=== PATIENT | female | born 1930 | race Caucasian/White ===

== ENCOUNTER → 2017-06-25 | Day surgery (SDC) | payer MEDICARE, OTHER ==
[~2017-06-25] MED LIST: ADVA250A INH; AMLO5TAB2 PO; ATOR10TA15 PO; BUPIVACAINE HCL PF 0.5% 30 ML VIAL ONE; BYST5TAB2 PO; CLON0.5T PO; HYDR12.57 PO; LEXA5TAB PO; MOME17I EACH NARE; PROPOFOL 200 MG/20 ML AMP IV ONE; TRIAMCINOLONE ACETONIDE 40 MG/ML VIAL I-ARTICULR ONE; ULTR37.55 PO; methylPREDNISolone ACETATE 40 MG/ML VIAL I-ARTICULR ONE
--- NOTE | 2017-06-26 08:51 | M6 ---
cc: RUTH MARTINEZ M.D. DATE 06/25/2017 DATE OF 1930 PROCEDURE Fluoroscopically guided injection right sacroiliac joint. History and physical was completed and signed. Consent was signed. Procedure site was marked. Medications were listed and reconciled. Pain score was recorded. Allergies were noted. Time out was taken. Fluoroscopy time was recorded where applicable. Sedation was administered or directed by Dr. Martinez. The patient was given oxygen. The patient was monitored by a registered nurse. Total procedure time was greater than 15 minutes. PROCEDURE NOTE IV was started. Blood pressure cuff, pulse oximeter and EKG were applied. The patient was placed in the prone position on a Garland table, sedated with small amounts of propofol titrated to effect. Vital signs were monitored and remained stable throughout the procedure. The sacral area was prepped with alcohol and 10% Betadine solution and draped with sterile drapes. Fluoroscopy was used shooting from medial to lateral to clearly visualize the posterior joint line of the right sacroiliac joint. A sterile 5-inch, 22-gauge spinal needle was advanced under fluoroscopic guidance into the joint. There was negative aspiration for blood or any other type of fluid and at that location the patient was given 2 mL of 0.5% Marcaine, 20 mg of Depo-Medrol and 20 mg of Kenalog. Following the procedure the patient was taken to the recovery room with stable vital signs, neurologically intact. She will be evaluated immediately and with followup to determine if she has a subjective decrease in he usual pain and a corresponding objective increase in her functional capabilities. W. MD SAHIL Verma/DARINEL /10:40 AM /8:35 AM
== END | disposition home or self-care (01) ==
LOC: PHSDC 09:05
PROVIDERS: ATTEND Pain Medicine Interventional Pain Medicine
DX: M54.5 Low back pain (principal)
CPT/HCPCS: 99152; G0260; J1030; J3301; 27096

== ENCOUNTER 2017-11-05 13:13 | Emergency (ER) | payer MEDICARE, OTHER ==
[~2017-11-05] VITALS: Ht 172.7 cm; Wt 94.0 kg
[~2017-11-05 13:13] MED LIST changes: -BUPIVACAINE HCL PF 0.5% 30 ML VIAL ONE; -PROPOFOL 200 MG/20 ML AMP IV ONE; -TRIAMCINOLONE ACETONIDE 40 MG/ML VIAL I-ARTICULR ONE; -methylPREDNISolone ACETATE 40 MG/ML VIAL I-ARTICULR ONE
[2017-11-05 13:17] VITALS: BP 145/67; PULSE 76; RESP 18; TEMP 99.1; O2SAT 96
[2017-11-05 14:37] LABS: AUTOMATED NEUTROPHIL # 6.5 TH/MM3 (1.8-7.7); BASOPHIL % 0.5 % (0.0-2.0); EOSINOPHIL # 0.1 TH/MM3 (0-0.4); EOSINOPHIL % 0.6 % (0.0-4.0); HEMATOCRIT 36.2 % (35.0-46.0); LYMPH % 19.7 % (9.0-44.0); LYMPHOCYTE # 1.7 TH/MM3 (1.0-4.8); MEAN CELL VOLUME 88.6 FL (80.0-100.0); MEAN CORPUSCULAR HEMOGLOBIN 31.8 PG (27.0-34.0); MEAN CORPUSCULAR HGB CONC 35.8 % (32.0-36.0); MEAN PLATELET VOLUME 7.5 FL (7.0-11.0); MONO % 5.8 % (0.0-8.0); MONOCYTE # 0.5 TH/MM3 (0-0.9); NEUT % 73.4 % (16.0-70.0); PLATELET COUNT 261 TH/MM3 (150-450); RED BLOOD COUNT 4.08 MIL/MM3 (4.00-5.30); RED CELL DISTRIBUTION WIDTH 13.5 % (11.6-17.2); WHITE BLOOD COUNT 8.8 TH/MM3 (4.0-11.0)
[2017-11-05 14:55] LABS: AST (GOT) 13 U/L (15-37); BICARBONATE 27.9 MEQ/L (21.0-32.0); BLOOD UREA NITROGEN 9 MG/DL (7-18); CALCIUM 9.6 MG/DL (8.5-10.1); CHLORIDE 101 MEQ/L (98-107); CREATININE 0.72 MG/DL (0.50-1.00); GLOMERULAR FILTRATION RATE 77 ML/MIN (>89); GLUCOSE,RANDOM 138 MG/DL (74-106); SODIUM (NA) 140 MEQ/L (136-145)
[2017-11-05 14:56] LABS: ALT (GPT) 21 U/L (10-53)
[2017-11-05 15:00] LABS: ALKALINE PHOSPHATASE 113 U/L (45-117); TOTAL BILIRUBIN ADULT 0.4 MG/DL (0.2-1.0); TOTAL PROTEIN 7.6 GM/DL (6.4-8.2); TROPONIN I LESS THAN 0.02 NG/ML (0.02-0.05)
[2017-11-05 15:22] VITALS: O2SAT 97
[2017-11-05 15:27] VITALS: O2SAT 98
--- NOTE | 2017-11-05 15:36 | PD ---
HPI Chief Complaint: Chest Pain Time Seen by Provider: 15:29 Travel History International Travel<30 days: No Contact w/Intl Traveler<30days: No Traveled to known affect area: No History of Present Illness HPI 87-year-old female patient with history of previous intracranial hemorrhage, presents to the ER today because of several days history of epigastric abdominal pain with radiation up to her chest and to the back. She states she has been nauseous and has had a few episodes of diarrhea yesterday. She denies any fevers, shortness of breath, or any other symptoms. Pain is currently rated a 5 out of 10. She states that it is better with sitting still. She does not know what makes it worse. Modifying Factors: None Associated Signs & Symptoms: Nausea, diarrhea, epigastric abdominal pain with radiation of the chest and to the back Risk Factors: None PFSH Past Medical History Arthritis: Yes Asthma: No Blood Disorders: No Anxiety: Yes Depression: No Heart Rhythm Problems: No Cancer: No Cardiovascular Problems: Yes High Cholesterol: Yes Chemotherapy: No Chest Pain: No Congestive Heart Failure: No COPD: Yes (MILD) Cerebrovascular Accident: Yes Diminished Hearing: Yes (BILAT HEARING AIDE) Endocrine: No Gastrointestinal Disorders: Yes (BARRETTS ESOPHAGUS) GERD: Yes Genitourinary: Yes Headaches: Yes Hepatitis: No Hiatal Hernia: No Hypertension: No Immune Disorder: No Kidney Stones: No Musculoskeletal: Yes Neurologic: Yes (SDH 09/11) Psychiatric: Yes Reproductive: No Respiratory: Yes (Pulmonary "scarring") Migraines: No Myocardial Infarction: No 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) Radiation Therapy: No Renal Failure: No Seizures: No Sleep Apnea: No Ulcer: Yes Menopausal: Yes Past Surgical History Abdominal Surgery: Yes (APPY 1962) AICD: No Appendectomy: Yes (1962) Arteriovenous Shunt: No Cardiac Surgery: No Cholecystectomy: No Ear Surgery: No Endocrine Surgery: No Eye Surgery: No Genitourinary Surgery: No Gynecologic Surgery: Yes (HYSTERECTOMY 1973) Hysterectomy: Yes (partial) Insulin Pump: No Joint Replacement: No Oral Surgery: No Pacemaker: No Thoracic Surgery: No Other Surgery: Yes (back surgery) Social History Alcohol Use: No Tobacco Use: No (QUIT 1983) Substance Use: No Allergies-Medications (Allergen,Severity, Reaction): Coded Allergies: codeine (Verified Allergy, Mild, NAUSEA/VOMITING, 11/05/17) levofloxacin (Verified Allergy, Mild, NAUSEA/VOMITING, 11/05/17) penicillin G (Verified Allergy, Mild, Hives, 11/05/17) Reported Meds & Prescriptions Reported Meds & Active Scripts Active Reported Clonazepam 0.5 Mg Tab 0.5 Mg PO HS Lexapro (Escitalopram Oxalate) 5 Mg Tab Unknown Dose PO DAILY Atorvastatin (Atorvastatin Calcium) 10 Mg Tab 40 Mg PO HS Hydrochlorothiazide 12.5 Mg Cap 12.5 Mg PO DAILY Bystolic (Nebivolol) 5 Mg Tab 5 Mg PO DAILY Amlodipine (Amlodipine Besylate) 5 Mg Tab 5 Mg PO DAILY Review of Systems Except as stated in HPI: all other systems reviewed are Neg Physical Exam Narrative GENERAL: Well-developed elderly white female patient currently and moderate distress. Awake and oriented 3. SKIN: Focused skin assessment warm/dry. HEAD: Atraumatic. Normocephalic. EYES: Pupils equal and round. No scleral icterus. No injection or drainage. ENT: No nasal bleeding or discharge. Mucous membranes pink and moist. NECK: Trachea midline. No JVD. CARDIOVASCULAR: Regular rate and rhythm. No murmur appreciated. RESPIRATORY: No accessory muscle use. Clear to auscultation. Breath sounds equal bilaterally. GASTROINTESTINAL: Abdomen soft, epigastric and right upper quadrant tenderness without guarding or rebound, nondistended. Hepatic and splenic margins not palpable. MUSCULOSKELETAL: No obvious deformities. No clubbing. No cyanosis. No edema. NEUROLOGICAL: Awake and alert. No obvious cranial nerve deficits. Motor grossly within normal limits. Normal speech. PSYCHIATRIC: Appropriate mood and affect; insight and judgment normal. Data Data Last Documented VS Vital Signs Date Time Temp Pulse Resp B/P (MAP) Pulse Ox O2 Delivery O2 Flow Rate FiO2 11/05/17 18:41 72 18 171/77 (108) 98 Room Air 11/05/17 13:17 99.1 Orders Orders Electrocardiogram (11/05/17 ) Urinalysis - C+S If Indicated (11/05/17 14:08) Complete Blood Count With Diff (11/05/17 14:08) Ckmb (Isoenzyme) Profile (11/05/17 14:08) Troponin I (11/05/17 14:08) Iv Access Insert/Monitor (11/05/17 14:08) Ecg Monitoring (11/05/17 14:08) Oxygen Administration (11/05/17 14:08) Oximetry (11/05/17 14:08) Comprehensive Metabolic Panel (11/05/17 14:08) Lipase (11/05/17 14:08) Chest, Pa & Lat (11/05/17 14:08) Ct Abd/Pel W Iv Contrast(Rout) (11/05/17 15:29) Urine Culture (11/05/17 15:28) Us Abdomen Gallbladder (11/05/17 16:47) Iohexol 350 Inj (Omnipaque 350 Inj) (11/05/17 17:51) Labs Laboratory Tests Test 11/05/17 14:23 11/05/17 15:28 White Blood Count 8.8 TH/MM3 Red Blood Count 4.08 MIL/MM3 Hemoglobin 13.0 GM/DL Hematocrit 36.2 % Mean Corpuscular Volume 88.6 FL Mean Corpuscular Hemoglobin 31.8 PG Mean Corpuscular Hemoglobin Concent 35.8 % Red Cell Distribution Width 13.5 % Platelet Count 261 TH/MM3 Mean Platelet Volume 7.5 FL Neutrophils (%) (Auto) 73.4 % Lymphocytes (%) (Auto) 19.7 % Monocytes (%) (Auto) 5.8 % Eosinophils (%) (Auto) 0.6 % Basophils (%) (Auto) 0.5 % Neutrophils # (Auto) 6.5 TH/MM3 Lymphocytes # (Auto) 1.7 TH/MM3 Monocytes # (Auto) 0.5 TH/MM3 Eosinophils # (Auto) 0.1 TH/MM3 Basophils # (Auto) 0.0 TH/MM3 CBC Comment DIFF FINAL Differential Comment Blood Urea Nitrogen 9 MG/DL Creatinine 0.72 MG/DL Random Glucose 138 MG/DL Total Protein 7.6 GM/DL Albumin 4.0 GM/DL Calcium Level 9.6 MG/DL Alkaline Phosphatase 113 U/L Aspartate Amino Transf (AST/SGOT) 13 U/L Alanine Aminotransferase (ALT/SGPT) 21 U/L Total Bilirubin 0.4 MG/DL Sodium Level 140 MEQ/L Potassium Level 3.2 MEQ/L Chloride Level 101 MEQ/L Carbon Dioxide Level 27.9 MEQ/L Anion Gap 11 MEQ/L Estimat Glomerular Filtration Rate 77 ML/MIN Total Creatine Kinase 73 U/L Troponin I LESS THAN 0.02 NG/ML Lipase 69 U/L Urine Color LIGHT-YELLOW Urine Turbidity CLEAR Urine pH 6.0 Urine Specific [place] 1.007 Urine Protein NEG mg/dL Urine Glucose (UA) NEG mg/dL Urine Ketones NEG mg/dL Urine Occult Blood NEG Urine Nitrite NEG Urine Bilirubin NEG Urine Urobilinogen LESS THAN 2.0 MG/DL Urine Leukocyte Esterase LARGE Urine RBC 2 /hpf Urine WBC 17 /hpf Urine Squamous Epithelial Cells 1 /hpf Urine Amorphous Sediment RARE Urine Bacteria MANY /hpf Microscopic Urinalysis Comment CULTURE INDICATED MDM Medical Decision Making Medical Screen Exam Complete: Yes Emergency Medical Condition: Yes Medical Record Reviewed: Yes Interpretation(s) EKG shows normal sinus rhythm with a right bundle branch block pattern. Laboratory Tests Test 11/05/17 14:23 Neutrophils (%) (Auto) 73.4 % (16.0-70.0) Random Glucose 138 MG/DL (74-106) Aspartate Amino Transf (AST/SGOT) 13 U/L (15-37) Potassium Level 3.2 MEQ/L (3.5-5.1) Estimat Glomerular Filtration Rate 77 ML/MIN (>89) Troponin I LESS THAN 0.02 NG/ML Lipase 69 U/L (73-393) Last 24 hours Impressions Gall Bladder Ultrasound 11/05/17 1647 Signed Impressions: CONCLUSION: 1. Normal exam. Abdomen/Pelvis CT 11/05/17 1529 Signed Impressions: CONCLUSION: 1. Mild scattered stranding of the mesentery which is a nonspecific finding. T his can be seen in asymptomatic people but can also be seen in acute mesenterit is. 2. Colonic diverticulosis without acute inflammation. 3. 9 mm low-density lesion involving the spleen which is poorly characterized on this exam. It likely relates to a cyst or hemangioma. 4. 2 mm nonobstructing left renal stone. 5. Small hiatal hernia. Chest X-Ray 11/05/17 1408 Signed Impressions: CONCLUSION: Negative examination. Differential Diagnosis ACS versus gastritis versus gastroenteritis versus pancreatitis versus cholecystitis Narrative Course Patient apparently had stopped taking her reflux medications because she states that she found out it could cause osteoporosis. She states that she has stopped some of the medications a few weeks ago. Suspect that her symptoms are more related to reflux and other acute processes. Her CAT scan shows signs of mesenteritis which the patient states she has had before. I do not think that this is new at this point. Ultrasound of the gallbladder did not show any signs of acute processes. Lab work was fairly unremarkable otherwise. Patient does have a UTI which I plan to treat as well. At this point, my plan would be to release her and have her get restarted on acid blocking medications. Follow- up with primary care doctor. Return for worsening in symptoms as needed. The plan has been discussed with her and she states understanding. Diagnosis Primary Impression: Abdominal pain Additional Impression: UTI (urinary tract infection) Med/Other Pt SpecificInfo: Prescription(s) given Scripts Nitrofurantoin Monohydrate Macrocrystals (Macrobid) 100 Mg Cap 100 MG PO BID for Infection for 7 Days, #14 CAP 0 Refills Prov: Alonzo Lozada MD 11/05/17 Pantoprazole (Protonix) 40 Mg Tab 40 MG PO DAILY for Reflux, #30 TAB 0 Refills Prov: Alonzo Lozada MD 11/05/17 Disposition: 01 DISCHARGE HOME Condition: Stable Alonzo Lozada MD Nov 05, 2017 15:36
--- NOTE | 2017-11-05 15:39 | RADRPT ---
EXAM DATE: 11/05/2017 3:02 PM EDT AGE/SEX: 87 years / Female INDICATIONS: Lower chest and back pain. CLINICAL DATA: This is the patient's initial encounter. Patient reports that signs and symptoms have been present for 1 week and indicates a pain score of 5/10. MEDICAL/SURGICAL HISTORY: Chronic obstructive pulmonary disease. Stroke. Francisco's esophagus None. COMPARISON: No prior exams available for comparison. FINDINGS: PA and lateral views of the chest demonstrate the lungs to be symmetrically aerated without evidence of mass, infiltrate or effusion. The cardiomediastinal contours are unremarkable. Osseous structures are intact. CONCLUSION: Negative examination. Electronically signed by: Jitendra Saavedra MD 11/05/2017 3:37 PM EDT
[2017-11-05 16:20] LABS: AMORPHOUS SEDIMENT, URINE RARE; BACTERIA, URINE MANY /hpf; BILIRUBIN, URINE NEG (NEG); BLOOD, URINE NEG (NEG); GLUCOSE,URINE NEG (NEG); KETONE, URINE NEG (NEG); NITRITE,URINE NEG (NEG); SQUAMOUS EPITHELIAL CELL URINE 1 /hpf (0-5); URINE COLOR LIGHT-YELLOW (YELLW/STRAW); URINE LEUKOCYTE ESTERASE LARGE (NEG)
[2017-11-05] MEDS ORDERED: IOHEXOL 350 MG/ML 10 ML VIAL (for RAD DIAG) IVCONTRAST ONE (17:51)
--- NOTE | 2017-11-05 18:06 | RADRPT ---
EXAM DATE: 11/05/2017 5:53 PM EDT AGE/SEX: 87 years / Female INDICATIONS: Upper abdominal pain, diarrhea. CLINICAL DATA: This is the patient's initial encounter. Patient reports that signs and symptoms have been present for 2 days and indicates a pain score of 8/10. MEDICAL/SURGICAL HISTORY: Chronic obstructive pulmonary disease. Cerebrovascular disease. Gas troesophageal reflux disease. Pancreatitis, ulcer. Hysterectomy. ORAL CONTRAST: No oral contrast ingested. RADIATION DOSE: 6.64 CTDI (mGy) COMPARISON: . TECHNIQUE: Multiple contiguous axial images were obtained through the abdomen and pelvis following b olus infusion of 70 ml Omnipaque 350 (iohexol) nonionic water-soluble contrast as a single exam dos e. No oral contrast ingested. Using automated exposure control and adjustment of the mA and/or kV ac cording to patient size, the radiation dose was kept as low as reasonably achievable to obtain optima l diagnostic quality images. FINDINGS: Lower Lungs: The visualized lower lungs are clear. Small hiatal hernia. Liver: The liver has a homogeneous density without space-occupying lesion. There is no dilation of th e biliary tree. Spleen: Normal size.. 9 mm low-density lesion involving the inferior lateral subcapsular location of the spleen.. Pancreas: Unremarkable without mass or calcification. Kidneys: Normal in size and shape. 2 mm nonobstructing stone involving the left kidney. No evidence of mass or hydronephrosis. Adrenal Glands: Unremarkable. Aorta: The aorta and proximal iliac vessels are grossly unremarkable without aneurysmal dilation. Bowel/Mesentery: Scattered colonic diverticuli without acute inflammation. The bowel loops are gross ly unremarkable. The cecum and sigmoid colon have a normal configuration. Subtle scattered stranding of the mesentery. No fluid collections. Abdominal Wall: Intact. Retroperitoneum: No evidence of adenopathy in the retrocrural, para-aortic, or deep pelvic regions. Bladder: Contours are smooth. Reproductive Organs: No abnormal masses or calcifications seen. Inguinal: The inguinal region is unremarkable without evidence of adenopathy. Bony Structures: Postsurgical changes involving the posterior elements of the lower lumbar spine.. CONCLUSION: 1. Mild scattered stranding of the mesentery which is a nonspecific finding. This can be seen in asy mptomatic people but can also be seen in acute mesenteritis. 2. Colonic diverticulosis without acute inflammation. 3. 9 mm low-density lesion involving the spleen which is poorly characterized on this exam. It likel y relates to a cyst or hemangioma. 4. 2 mm nonobstructing left renal stone. 5. Small hiatal hernia. Electronically signed by: Jitendra Saavedra MD 11/05/2017 6:05 PM EDT
--- NOTE | 2017-11-05 18:38 | RADRPT ---
EXAM DATE: 11/05/2017 6:29 PM EDT AGE/SEX: 87 years / Female INDICATIONS: Right upper quadrant pain. CLINICAL DATA: This is the patient's initial encounter. Patient reports that signs and/or symptoms h ave been present for 1 day and indicates a pain score of 1/10. MEDICAL/SURGICAL HISTORY: . Hypercholesterolemia. Cerebral vascular infarct. COPD. GERD. Damion t's esophagus. . Appendectomy. Hysterectomy. Left knee surgery. Back surgery. COMPARISON: CT of the abdomen and pelvis 11/05/2017. No external comparison. MEASUREMENTS (cm x cm x cm): Liver:__ 15.2 cm length Common Bile Duct:__ 5mm FINDINGS: Liver: Normal echotexture without focal lesion or ductal dilatation. Portal Vein: Hepatopedal flow seen in portal vein. Common Duct: No intralumincal mass or stone visualized. Gallbladder: Demonstrates no wall thickening or pericholecystic fluid. No stones visualized. Pancreas: The visualized portions are within normal limits Right Kidney: No mass or hydronephrosis Other: None. CONCLUSION: 1. Normal exam. Electronically signed by: Jitendra Saavedra MD 11/05/2017 6:37 PM EDT
[2017-11-05 18:41] VITALS: BP 171/77; PULSE 72; RESP 18; O2SAT 98
[2017-11-05] MEDS ORDERED: MACR100C2 PO (19:00)
[2017-11-05] MEDS ORDERED: PROT40TA PO (19:00)
--- NOTE | 2017-11-06 18:31 | EKG ---
Date Performed: 11/05/2017 Time Performed: 13:32:06 PTAGE: 87 years EKG: Sinus rhythm POSSIBLE LEFT ATRIAL ENLARGEMENT MARKED LEFT AXIS DEVIATION LEFT BUNDLE BRANCH BLOCK When compared t o previous tracing, patient has developed a left Bundle branch block, so the tracings are not directl y comparable. ABNORMAL ECG PREVIOUS TRACING : 13.30 DOCTOR: Lupe Knight Interpretating Date/Time 11/06/2017 18:30:39
== END 2017-11-05 19:27 | disposition home or self-care (01) ==
LOC: NEPC 13:13
DX: R10.13 Epigastric pain (principal); N39.0 Urinary tract infection, site not specified; K21.9 Gastro-esophageal reflux disease without esophagitis; K22.70 Barrett's esophagus without dysplasia; K44.9 Diaphragmatic hernia without obstruction or gangrene; K57.30 Diverticulosis of large intestine without perforation or abscess without bleeding; N20.0 Calculus of kidney; E78.00 Pure hypercholesterolemia, unspecified; Z87.891 Personal history of nicotine dependence
CPT/HCPCS: 71046; 74177; 76705; 80053; 81001; 82550; 83690; 84484; 85025; 87086; 93005; 99285; Q9967